=== PATIENT | male | born 1955 | race Caucasian/White ===

== ENCOUNTER 2023-03-14 11:07 | Emergency (ER) | payer MEDICARE, OTHER ==
[2023-03-14 11:32] LABS: BASOPHILS # (AUTO) 0.1 10^3/uL (0.0-0.1); BASOPHILS % (AUTO) 0.8 %; EOSINOPHILS # (AUTO) 0.1 10^3/uL (0.0-0.7); EOSINOPHILS % (AUTO) 2.1 %; HCT - HEMATOCRIT 50.6 % (42.0-52.0); LYMPHOCYTES # (AUTO) 1.3 10^3/uL (1.5-3.5); LYMPHOCYTES % (AUTO) 21.1 %; MEAN CORPUSCULAR HEMOGLOBIN 31.8 pg (27.0-31.0); MEAN CORPUSCULAR HGB CONC 33.6 g/dL (32.0-36.0); MEAN CORPUSCULAR VOLUME 94.8 fL (80.0-94.0); MEAN PLATELET VOLUME 9.8 fL (7.4-11.4); MONOCYTES # (AUTO) 0.4 10^3/uL (0.0-1.0); MONOCYTES % (AUTO) 6.7 %; NEUTROPHILS # (AUTO) 4.3 10^3/uL (1.5-6.6); PLT - PLATELET COUNT 225 10^3/uL (130-450); RED BLOOD COUNT 5.34 10^6/uL (4.70-6.10); RED CELL DISTRIBUTION WIDTH 12.7 % (12.0-15.0); WHITE BLOOD COUNT 6.3 x10^3/uL (4.8-10.8)
[2023-03-14 11:45] LABS: ALBUMIN 4.2 g/dL (3.2-5.5); ALBUMIN/GLOBULIN RATIO 1.4 (1.0-2.2); CALCIUM 9.4 mg/dL (8.5-10.3); TOTAL PROTEIN 7.2 g/dL (6.4-8.9)
--- NOTE | 2023-03-14 12:52 | ED Physician Documentation ---
PD HPI CHEST PAIN - Stated complaint Stated Complaint: CHEST PX - Chief complaint Chief Complaint: Cardiac - History obtained from History obtained from: Patient - Additional information Additional information: 67-year-old gentleman who has no known history of coronary disease although he states he was diagnosed with "angina" in his mid 30s by doctor but without follow-up testing or ill effect. For the last week he has had 2 different types of chest symptoms. It started with a sharp pain lasting seconds at a time. It is generally exertional, but he also has it after eating. He has not had that since yesterday. Over the last couple of days though he has had an intermittent sensation of just feeling his heartbeat that is not painful. He denies shortness of breath, dizziness, nausea, recent travel, cough, hemoptysis. He does have mild pedal edema but that is a more chronic issue and symmetric. No calf pain. No personal history of DVT, PE, or coronary disease other than the "angina." No family history of coronary disease. He has a history of hypercholesterolemia, no history of blood pressure. He quit smoking at age 33. PD PAST MEDICAL HISTORY - Present Medications Home Medications: Ambulatory Orders Medication Instructions Recorded Confirmed No Known Home Medications 03/14/23 03/14/23 - Allergies Allergies/Adverse Reactions: Allergies Allergy/AdvReac Type Severity Reaction Status Date / Time No Known Drug Allergies Allergy Verified 03/14/23 11:17 PD ED PE NORMAL - Vitals Vital signs reviewed: Yes - General General: Alert and oriented X 3, No acute distress - Neck Neck: Supple, no meningeal sign, No bony TTP - Cardiac Cardiac: RRR, No murmur - Respiratory Respiratory: No respiratory distress, Clear bilaterally - Abdomen Abdomen: Non tender - Extremities Extremities: No edema, No calf tenderness / cord - Neuro Neuro: Alert and oriented X 3, Normal speech Results - Vitals Vitals: Vital Signs - 24 hr 03/14/23 03/14/23 03/14/23 11:14 11:16 12:50 Temperature 36.1 C L 36.5 C 36.5 C Heart Rate 64 64 54 L Respiratory 20 20 16 Rate Blood Pressure 185/97 H 185/97 H 162/88 H O2 Saturation 97 97 99 Oxygen O2 Source Room air - EKG (time done) 1117 EKG releavant findings:: EKG personally interpreted by author of this note. Relevant findings are: Rate: Rate (enter#) (52) Rhythm: NSR [place]: Normal Intervals: Other (LAFB) QRS: Normal Ischemia: Normal ST segments - Labs Labs: Laboratory Tests 03/14/23 03/14/23 11:28 11:28 WBC 6.3 RBC 5.34 Hgb 17.0 Hct 50.6 MCV 94.8 H MCH 31.8 H MCHC 33.6 RDW 12.7 Plt Count 225 MPV 9.8 Neut # (Auto) 4.3 Lymph # (Auto) 1.3 L [place] # (Auto) 0.4 Eos # (Auto) 0.1 Baso # (Auto) 0.1 Absolute Nucleated RBC 0.00 Nucleated RBC % 0.0 Sodium 138 Potassium 4.0 Chloride 104 Carbon Dioxide 30 Anion Gap 4.0 L BUN 13 Creatinine 1.0 Estimated GFR (MDRD) 75 L Glucose 131 H Calcium 9.4 Total Bilirubin 1.0 AST 25 ALT 29 Alkaline Phosphatase 69 Troponin I High Sens 4.0 Total Protein 7.2 Albumin 4.2 Globulin 3.0 Albumin/Globulin Ratio 1.4 Lipase 24 - Rads (name of study) Single view chest x-ray is unremarkable Relevant Findings:: Final report received, EMP independent interpretation of test PD Medical Decision Making - ED course ED course: CBC reviewed with mild macrocytosis not associated with anemia. CMP with borderline blood sugar at 131. Troponin normal/negative at 4. Heart score 3 He remained asymptomatic while in the department without ectopy on the monitor. Advised on follow-up need for stress testing and return precautions. Departure - Departure Disposition: 01 Home, Self Care Clinical Impression: Palpitations Chest pain Qualifiers: Chest pain type: unspecified Qualified Code(s): R07.9 - Chest pain, unspecified Condition: Stable Record reviewed to determine appropriate education?: Yes Instructions: ED Chest Pain NonCardiac Comments: No concerning findings were found on work-up today. Blood sugar mildly elevated at 131 and should be followed by your primary care physician but specific heart testing was normal/negative. Return if you worsen or if pain lasts any longer than it has been. Otherwise follow-up with your primary care physician, next available appointment, with consideration for stress testing.
[2023-03-14 12:58] VITALS: BP 162/88; O2SAT 99
--- NOTE | 2023-03-14 13:06 | XRAY Report ---
PROCEDURE: Chest 1 View X-Ray INDICATIONS: Chest pain TECHNIQUE: One view of the chest was acquired. COMPARISON: None. FINDINGS: Surgical changes and devices: None. Lungs and pleura: No pleural effusions or pneumothorax. Lungs are clear. Mediastinum: Mediastinal contours appear normal. Heart size is normal. Bones and chest wall: No suspicious bony lesions. Overlying soft tissues appear unremarkable. IMPRESSION: No acute cardiopulmonary process. Reviewed by: Fernando Diane MD on 03/14/2023 1:05 PM PDT Approved by: Fernando Diane MD on 03/14/2023 1:05 PM PDT Station ID: [id number]
== END 2023-03-14 13:19 | disposition home or self-care (01) ==
LOC: ED 11:07
DX: R07.9 Chest pain, unspecified (principal); R00.2 Palpitations; R73.9 Hyperglycemia, unspecified; Z87.891 Personal history of nicotine dependence
CPT/HCPCS: 36415; 80053; 83690; 84484; 85025; 93005; 99283; 99284